=== PATIENT | male | born 1960 | race Caucasian/White ===

== ENCOUNTER 2024-04-21 10:19 | Emergency (ER) | payer OTHER, MEDICAID ==
[~2024-04-21] VITALS: Ht 180.3 cm; Wt 82.0 kg
[2024-04-21 10:44] LABS: Basophils # (auto) 0.1 10 ^3/uL (0-0.2); Basophils % (auto) 0.8 % (0.0-2.0); Eosinophils # (auto) 0.1 10 ^3/uL (0-0.8); Eosinophils % (auto) 1.6 % (0.0-7.0); Hematocrit 45.2 % (41.0-53.0); Hemoglobin 15.9 g/dL (13.5-17.5); Lymphocytes # (auto) 3.4 10 ^3/uL (0.4-5.4); Lymphocytes % (auto) 47.7 % (10.0-50.0); Mean Corpuscular Hemoglobin 31.6 pg (28.0-32.0); Mean Corpuscular Hgb Conc. 35.2 g/dL (32.0-36.0); Monocytes # (auto) 0.4 10 ^3/uL (0-1.3); Monocytes % (auto) 5.8 % (0.0-12.0); Neutrophils # (auto) 3.2 10 ^3/uL (1.6-8.6); Neutrophils % (auto) 44.1 % (37.0-80.0); Nucleated Red Blood Cells % 0.1 %; Red Blood Cells 5.02 10^6/uL (4.5-5.90); Red Cell Distribution Width 13.4 % (11.8-14.3); White Blood Cell 7.2 10^3/uL (4.4-10.8)
[2024-04-21 10:56] LABS: INR 1.04 (0.9-1.15); Partial Thromboplastin Time 24.2 SEC (24.5-34.5)
[2024-04-21 11:00] LABS: Alanine Aminotransferase 75 U/L (7-40); Albumin 5.3 g/dL (3.2-4.8); Alkaline Phosphatase 103 U/L (46-116); Anion Gap 8 (5-15); Aspartate Aminotransferase 31 U/L (13-40); BUN/Creatinine Ratio 11.1 (10.0-20.0); Bilirubin, Total 1.1 mg/dL (0.2-1.0); Blood Urea Nitrogen 9 mg/dL (9-23); Calcium 10.4 mg/dL (8.5-10.1); Carbon Dioxide 25 mmol/L (20-30); Chloride 108 mmol/L (98-107); Glucose 143 mg/dL (74-106); Magnesium 1.9 mg/dL (1.6-2.6); Potassium 4.1 mmol/L (3.5-5.1); Sodium 141 mmol/L (136-145); Total Protein 8.3 g/dL (5.7-8.2)
[2024-04-21] MEDS: SODIUM CHLORIDE 0.9% 500 ML IV ONE (11:04)
[2024-04-21 11:17] VITALS: PULSE 60; RESP 12; O2SAT 99
[2024-04-21 12:28] LABS: Urine Bacteria None Seen /hpf (None Seen)
[2024-04-21 12:41] LABS: Urine Blood Negative /uL (Negative); Urine Clarity Clear (Clear); Urine Color Yellow (Yellow); Urine Hyaline Cast FEW /lpf (0 - 2); Urine Mucus FEW (None Seen); Urine Protein, UAD Negative (Negative); Urine Specific Gravity 1.015 (1.001-1.035); Urine Urobilinogen Normal (Negative); Urine WBC 1 /hpf (0 - 3); Urine pH 6.5 (5.0-9.0)
[2024-04-21 13:27] VITALS: TEMP 97.7
[2024-04-21] MEDS ORDERED: MECL1TAB42 PO (15:00)
[2024-04-21 15:18] VITALS: BP 140/80; PULSE 60; RESP 20; O2SAT 95
== END 2024-04-21 15:46 | disposition home or self-care (01) ==
LOC: EDBD 10:19 → ER 10:19
DX: R42 Dizziness and giddiness (principal); R53.1 Weakness
CPT/HCPCS: 36415; 71045; 80053; 81001; 83735; 83880; 84484; 85025; 85610; 85730; 93005; 96360; 99285; J7040